=== PATIENT | male | born 1940 | race Caucasian/White ===

== ENCOUNTER 2024-03-20 09:06 | Outpatient (AMB) | payer MEDICARE, OTHER, SELFPAY ==
--- NOTE | 2024-03-20 09:34 | MHC.OFFVIS ---
Intake Visit Reasons: FC- Right tibia/fibula- DOI 02/22/24 Intake Note: Aj is a 84 year old male who presents today with his daughter in law and his for a evaluation of his right tibia/fibula injury, DOI 12/2023. He was placed in a splint on 01/05/24 and then transferred to a cast until they removed it sooner since they thought he didn't have a fracture anymore as per daughter in law. Allergies codeine Allergy (Unknown, Verified 03/20/24 09:55) Unknown lithium Allergy (Unknown, Verified 03/20/24 09:55) Unknown morphine Allergy (Unknown, Verified 03/20/24 09:55) Unknown Opioids - Morphine Analogues Allergy (Unknown, Verified 03/20/24 09:55) Unknown Penicillins Allergy (Unknown, Verified 03/20/24 09:55) Unknown HPI HPI FC- Right tibia/fibula- DOI 02/22/24: Details: 84-year-old male who presents in the office today, as a new patient, for an evaluation of right tibia-fibula fracture. The patient was referred by Evelyn RAMOS at [facility]. X-rays of the right tib-fib were obtained. While in the office today, the patient had a right tibia/fibula injury that occurred in 12/2023. The patient?s jilwmahv-vd-grn reports that the patient got evaluated and was placed in a splint on 01/05/24. He was transferred to a cast, which was removed earlier thinking that the fracture had resolved. The patient is accompanied by his tgsayjfv-so-cdr and his . Review of Systems Const All systems reviewed & are unremarkable except as noted in HPI and below Physical Exam Const General: cooperative and no acute distress Orientation/consciousness: patient oriented x3 Resp Effort & Inspection: normal respiratory effort and able to speak in complete sentences Cardio Peripheral pulses: Peripheral pulses 2+ throughout Skin General skin exam: no rashes or lesions noted Neuro General: patient oriented x3 Extrem Other: Right lower extremity: Able to perform right knee flexion and extension. The patient was unable to follow directions and therefore the exam was done passively from 20 degrees to 90 degrees. Tib/fib squeeze with no alert to pain or discomfort. Able to perform dorsiflexion and plantar flexion. Pedal pulse intact. Of note, he does have two small abrasions, one on the dorsal aspect of the little toe at the dip and the other on the plantar aspect of the little toe at the MCP. No surrounding erythema or drainage. No signs of infection. Office Procedures AMB Fracture Care Fracture Billing Code: Fracture Billing Code Assessment & Plan Assessment & Plan (1) Fracture of right tibia and fibula: Code(s): S82.201A - Unspecified fracture of shaft of right tibia, initial encounter for closed fracture; S82.401A - Unspecified fracture of shaft of right fibula, initial encounter for closed fracture Category: Medical Plan Mr. Robledo is an 84-year-old male who presents in the office today, as a new patient, for an evaluation of right tibia-fibula fracture. The patient was referred by Evelyn RAMOS at [facility]. X-rays of the right tib-fib were obtained. While in the office today, the patient had a right tibia/fibula injury that occurred in 12/2023. The patient?s jbzwvavj-ve-oyf reports that the patient got evaluated and was placed in a splint on 01/05/24. He was transferred to a cast, which was removed earlier thinking that the fracture had resolved. The patient is accompanied by his zejtgqvw-xm-ylp and his . The case was reviewed by . Milan was available to speak with me but unable to see the patient, and a collaborative treatment plan was made. The patient was placed into a tall walking boot, off the shelf. He should remain in the boot at all times while ambulating and to remove the boot daily to perform skin checks and monitor for any skin breakdown. He may start bearing weight as tolerated with the use of a walker. I recommend physical therapy to work on gait, training with a walker. Follow-up will be in 4 weeks with repeat x-rays, or sooner if needed. X-rays of the right ankle, which were obtained while in the office today and were reviewed by me, Tana Mcmahon PA-C, revealed: Demonstration of right tib/fib fracture with interval healing. X-rays of the right tib-fib, obtained on 02/22/24, revealed: Stable fractures of the distal tibia and fibula. Orders: Orders XR ankle RT min 3V 03/20/24 M25.579 - Pain in unspecified ankle and joints of unspecified foot Patient Instructions: Scribed by Sally Valdez, medical technician assistant, for Tana Lisandro [place] on 03/20/24 at 10:59 am EST. Coding Level of Care Code New Pt Level 4 (53806) Diagnoses Fracture of right tibia and fibula S82.201A; S82.401A CPT Codes Fracture Care - Fracture Billing Code: Fracture Billing Code ([id number])
== END 2024-03-20 10:55 | disposition home or self-care (01) ==
PROVIDERS: Visit Provider Physician Assistant
DX: S82.201A Unspecified fracture of shaft of right tibia, initial encounter for closed fracture (principal); S82.401A Unspecified fracture of shaft of right fibula, initial encounter for closed fracture
CPT/HCPCS: 99203

== ENCOUNTER 2024-03-20 15:27 | Outpatient (REF) | payer MEDICARE, OTHER, SELFPAY ==
--- NOTE | ~2024-03-20 | XR_ITS ---
EXAMINATION: XR ANKLE RIGHT CLINICAL INFORMATION: Pain in unspecified ankle and joints of unspecified foot M25.579. COMPARISON: None TECHNIQUE: AP, lateral, and mortise views of the right ankle. FINDINGS: Mildly displaced oblique fracture of the distal tibia and fibula. Ankle mortise is preserved. Talar dome is intact. Small posterior and inferior calcaneal spurs. There are vascular calcifications. XR/XR ankle RT min 3V IMPRESSION: Mildly displaced oblique fractures of the distal tibia and fibula just proximal to the ankle joint.. (Referring physician staff is being called, by physician staff assistance, to be alerted of the above critical findings and recommendations.) Via [employer] communication system 03/29/2024 8:25 PM NAPHTHALENE OPERATOR HELPER Electronically signed by: Ibrahima Morris MD 03/29/2024 09:26 PM JIM HAMPTON
== END 2024-03-20 15:28 | disposition home or self-care (01) ==
LOC: HO.HOSX 15:27
PROVIDERS: Visit Provider Physician Assistant
DX: M25.571 Pain in right ankle and joints of right foot (principal); S82.201A Unspecified fracture of shaft of right tibia, initial encounter for closed fracture; S82.401A Unspecified fracture of shaft of right fibula, initial encounter for closed fracture
CPT/HCPCS: 73610; 99202

== ENCOUNTER 2024-05-02 07:46 | Outpatient (REF) | payer MEDICARE, OTHER, SELFPAY ==
--- NOTE | ~2024-05-02 | XR_ITS ---
CLINICAL HISTORY: M25.579 - Pain in unspecified ankle and joints of unspecified foot 3 view right ankle Comparison: DX/DC/SR - XR ANKLE RT MIN 3V - 03/20/24 09:15 EST Findings: Oblique fractures of the distal tibia and fibula with mild interval callus formation in the tibia when compared to prior. Stable alignment No new fractures. No ankle effusion. Surgical clips in the posterior medial calf. IMPRESSION: 1. Healing oblique fractures of the distal right tibia and fibula with mild tibial callus formation, unchanged alignment. This document has been electronically signed by: Tia Crowley MD on 05/03/2024 01:21:25
--- OUTSIDE RECORDS SUMMARY | 2024-05-02 07:48 | XMS_ITS | Encounter Summary ---
Author Organization [facility] Address [address] [place] [address] Care Team Providers Care Hand Cigar Making Supervisor Name Role Phone Argelia Worthington MD Primary Care Provider [phone] Encounter Details Date Type Department Care Team (Late st Contact Info) Description 04/03/2024 Lab Requisition [facility] - Main Lab [address] [place] [address] Alvaro Baez MD [address] [place] [id number] Chronic kidney disease, unspecified; Cerebral infarction, unspecified (CMS/HCC) Social History Tobacco Use Types Packs/Day Years Used Date Smoking Tobacco: Never Alcohol Use Standard Drinks/Week Comments Never 0 (1 standard drink = 0.6 oz pur e alcohol) Sex and Gender Information Value Date Recorded Sex Assigned at Not on file Gender Identity Not on file Sexual Orientation Not on file documented as of this encounter Plan of Treatment Not on file documented as of this encounter Procedures Procedure Name Priority Date/Time Associated Diagnosis Comments COMPLETE BLOOD COUNT Routine 04/03/2024 8:12 AM EST Chronic kidney disease, unspecified Cerebral infarction, unspecified (CMS/HCC) BASIC METABOLIC PANEL Routine 04/03/2024 8:12 AM EST Chronic kidney disease, unspecified Cerebral infarction, unspecified (CMS/HCC) documented in this encounter Results * (ABNORMAL) Basic metabolic panel (04/03/2024 8:12 AM EST) Sodium 138 133 - 145 mmol/L LAB CHEMISTRY METHOD 04/03/2024 11:58 AM EST [facility] Potassium 4.4 3.5 - 5.5 mmol/L LAB CHEMISTRY METHOD 04/03/2024 11:58 AM [facility] Chloride 107 96 - 110 mmol/L LAB CHEMISTRY METHOD 04/03/2024 11:58 AM [facility] CO2 25 21 - 32 mmol/L LAB CHEMISTRY METHOD 04/03/2024 11:58 AM [facility] Anion Gap 6 3 - 11 LAB CHEMISTRY METHOD 04/03/2024 11:58 AM [facility] Glucose 89 70 - 100 mg/dL LAB CHEMISTRY METHOD 04/03/2024 11:58 AM [facility] BUN 30(H) 5 - 25 mg/dL LAB CHEMISTRY METHOD 04/03/2024 11:58 AM [facility] Creatinine 1.19 0.70 - 1.30 mg/dL LAB CHEMISTRY METHOD 04/03/2024 11:58 AM [facility] eGFR 60 >=60 mL/min/1. 73m2 LAB CHEMISTRY METHOD 04/03/2024 11:58 AM [facility] Comment:Calculation based on the??Chronic Kidney Disease Epidemiology Collaboration (CKD-EPI) equation refit??without adjustment for race. BUN/Creatinine Ratio 25.2 LAB CHEMISTRY METHOD 04/03/2024 11:58 AM [facility] Calcium 8.5 8.5 - 10.5 mg/dL LAB CHEMISTRY METHOD 04/03/2024 11:58 AM [facility] Blood Venous blood specimen / Unknown Venipuncture / Unknown 04/03/2024 8:12 AM EST 04/03/2024 10:36 AM EST Alvaro Baez MD LAB BLOOD ORDERABLES [facility] [address] [place] [address], * (ABNORMAL) Complete blood count (04/03/2024 8:12 AM EST) WBC 7.2 4.8 - 10.8 K/mcL LAB HEMETOLOGY METHOD 04/03/2024 11:23 AM [facility] RBC 3.20(L) 4.50 - 5.50 M/mcL LAB HEMETOLOGY METHOD 04/03/2024 11:23 AM [facility] Hemoglobin 10.4(L) 13.5 - 17.5 g/dL LAB HEMETOLOGY METHOD 04/03/2024 11:23 AM [facility] Hematocrit 32.3(L) 42.0 - 54.0 % LAB HEMETOLOGY METHOD 04/03/2024 11:23 AM [facility] MCV 101.6(H) 79.0 - 98.0 FL LAB HEMETOLOGY METHOD 04/03/2024 11:23 AM [facility] MCH 32.7(H) 27.0 - 32.0 pcg LAB HEMETOLOGY METHOD 04/03/2024 11:23 AM [facility] MCHC 32.2 32.0 - 37.0 g/dL LAB HEMETOLOGY METHOD 04/03/2024 11:23 AM [facility] RDW 12.3 11.0 - 15.0 % LAB HEMETOLOGY METHOD 04/03/2024 11:23 AM [facility] Platelets 197 130 - 400 K/[facility] LAB HEMETOLOGY METHOD 04/03/2024 11:23 AM [facility] MPV 9.4 7.0 - 11.0 FL LAB HEMETOLOGY METHOD 04/03/2024 11:23 AM [facility] NRBC 0.0 <1.0 % LAB HEMETOLOGY METHOD 04/03/2024 11:23 AM [facility] NRBC Absolute 0.00 <0.10 K/mcL LAB HEMETOLOGY METHOD 04/03/2024 11:23 AM [facility] Blood Venous blood specimen / Unknown Venipuncture / Unknown 04/03/2024 8:12 AM EST 04/03/2024 10:36 AM EST Alvaro Baez MD LAB BLOOD ORDERABLES [facility] [address] [place] [address], documented in this encounter Visit Diagnoses Diagnosis Chronic kidney disease, unspecified Cerebral infarction, unspecified (CMS/HCC) documented in this encounter Care Teams Hand Cigar Making Supervisor Relationship Specialty Start Date End Date Argelia Worthington MD [address] [place], [place] [address]RICHARD guaman PCP - General 12/29/11 documented as of this encounter
--- OUTSIDE RECORDS SUMMARY | 2024-05-02 07:48 | XMS_ITS | Encounter Summary ---
Author Organization [facility] Address [address] [place] [address] Phone Care Team Providers Care Bottle Selector Name Role Phone Truman Bess MD Primary Care Provide r Encounter Details Date Type Department Care Team (Late st Contact Info) Description 04/07/2022 Documentation Only [facility] [place], [address] [place] [address] Danyell Hurd [address] [place] [phone] Social History Tobacco Use Types Packs/Day Years Used Date Smoking Tobacco: Former Cigars Smokeless Tobacco: Former Quit: 03/29/2014 Sex and Gender Information Value Date Recorded Sex Assigned at Not on file Legal Sex Male 4:35 PM EST Gender Identity Not on file Sexual Orientation Not on file documented as of this encounter Plan of Treatment Not on file documented as of this encounter Visit Diagnoses Not on filedocumented in this encounter Care Teams Bottle Selector Relationship Specialty Start Date End Date Truman Bess MD [address] [place] [address] PCP - General Internal Medicine 04/07/22 documented as of this encounter
--- OUTSIDE RECORDS SUMMARY | 2024-05-02 07:48 | XMS_ITS | Encounter Summary ---
Author Organization [facility] Address [address] [place] [address] Phone Care Team Providers Care Transcription Specialist Name Role Phone Truman Bess MD Primary Care Provide r Encounter Details Date Type Department Care Team (Late st Contact Info) Description 04/10/2022 Documentation Only [facility] [place], [address] [place] [address] Danyell Hurd [address] [place] [phone] Social History Tobacco Use Types Packs/Day Years [...] on filedocumented in this encounter Care Teams Transcription Specialist Relationship Specialty Start Date End Date Truman Bess MD [address] [place] [phone] PCP - General Internal Medicine 04/07/22 documented as of this encounter
--- OUTSIDE RECORDS SUMMARY | 2024-05-02 07:48 | XMS_ITS | Encounter Summary ---
Author Organization [facility] Address [address] [place] [address] Phone Care Team Providers Care High Tension Tester Name Role Phone Truman Bess MD Primary Care Provide r Reason for Visit * Reason Onset Date Comments Med Refill 04/03/2024 Encounter Details Date Type Department Care Team (Late st Contact Info) Description 04/03/2024 Refill [facility] [place], [address] [place] [address] [place] [address] [place] [phone] Social History Tobacco Use Types Packs/Day Years [...] on filedocumented in this encounter Care Teams High Tension Tester Relationship Specialty Start Date End Date Truman Bess MD [address] [place] [address] PCP - General Internal Medicine 04/07/22 documented as of this encounter
--- OUTSIDE RECORDS SUMMARY | 2024-05-02 07:48 | XMS_ITS | Encounter Summary ---
Author Organization [facility] Address [address] [place] [address] Phone Care Team Providers Care Medical Laboratory Manager Name Role Phone Truman Bess MD Primary Care Provide r Encounter Details Date Type Department Care Team (Late st Contact Info) Description 10/08/2022 Documentation Only [facility] [place], [address] [place] [address] Danyell Hurd [address] [place] [phone] Social History Tobacco Use Types Packs/Day Years [...] on filedocumented in this encounter Care Teams Medical Laboratory Manager Relationship Specialty Start Date End Date Truman Bess MD [address] [place] [address] PCP - General Internal Medicine 04/07/22 documented as of this encounter
--- OUTSIDE RECORDS SUMMARY | 2024-05-02 07:48 | XMS_ITS | Encounter Summary ---
Author Organization [facility] Address [address] [place] [address] Phone Care Team Providers Care Animal Trapper Name Role Phone Truman Bess MD Primary Care Provide r Encounter Details Date Type Department Care Team (Late st Contact Info) Description 11/13/2021 Documentation Only [facility] [place], [address] [place] [address] Danyell Hurd [address] [place] [phone] Social History Tobacco Use Types Packs/Day Years [...] on filedocumented in this encounter Care Teams Animal Trapper Relationship Specialty Start Date End Date Truman Bess MD [address] [place] [address] PCP - General Internal Medicine 04/07/22 documented as of this encounter
--- OUTSIDE RECORDS SUMMARY | 2024-05-02 07:48 | XMS_ITS | Encounter Summary ---
Author Organization [facility], Address [address] [place] [address] Phone Care Team Providers Care Shuttle Filler Name Role Phone Truman Bess MD Primary Care Provide r Reason for Visit * Reason Comments Med Refill Encounter Details Date Type Department Care Team ([facility] st Contact Info) Description 12/04/2020 Refill [facility] [place] [address] [place] [address] Rafael Randolph MD [address] [place] [address] [place] [address] Social History Tobacco Use Types Packs/Day Years Used Date Smoking Tobacco: Former Cigarettes Q uit: 03/29/2012 Smokeless Tobacco: Former Quit: 03/29/2014 Sex and Gender Information Value Date Recorded Sex Assigned at Not on file Legal Sex Male 4:35 PM EST Gender Identity Not on file Sexual Orientation Not on file documented as of this encounter Plan of Treatment Not on file documented as of this encounter Visit Diagnoses Not on filedocumented in this encounter Care Teams Shuttle Filler Relationship Specialty Start Date End Date Truman Bess MD [address] [place], [place] [phone] PCP - General Internal Medicine 04/07/22 documented as of this encounter
--- OUTSIDE RECORDS SUMMARY | 2024-05-02 07:48 | XMS_ITS | Encounter Summary ---
Author Organization [facility] [place], Address [address] [place] [address] Phone Care Team Providers Care Seasoning Mixer Name Role Phone Truman eBss MD Primary Care Provide r Reason for Visit * Reason Comments Med Refill Encounter Details Date Type Department Care Team (Late st Contact Info) Description 03/14/2020 Refill [facility] [address] [place] [address] Rafael Randolph MD [address] [place] [address] [place] [address] Social History Tobacco Use Types Packs/Day Years Used Date Smoking Tobacco: Former Cigarettes Q uit: 03/29/2012 Sex and Gender Information Value Date Recorded Sex Assigned at Not on file Legal Sex Male 4:35 PM EST Gender Identity Not on file Sexual Orientation Not on file documented as of this encounter Plan of Treatment Not on file documented as of this encounter Visit Diagnoses Not on filedocumented in this encounter Care Teams Seasoning Mixer Relationship Specialty Start Date End Date Truman Bess MD [address] [place] [phone] PCP - General Internal Medicine 04/07/22 documented as of this encounter
--- OUTSIDE RECORDS SUMMARY | 2024-05-02 07:48 | XMS_ITS | Encounter Summary ---
Author Organization [facility] [place], Address [address] [place] [address] Phone Care Team Providers Care Shuttle Veneering Supervisor Name Role Phone Truman Bess MD Primary Care Provide r Encounter Details Date Type Department Care Team (Late st Contact Info) Description 05/05/2023 Documentation Only [facility] [place], [address] [place] [address] [place] [phone] Social History Tobacco Use Types Packs/Day Years [...] filedocumented in this encounter Care Teams Shuttle Veneering Supervisor Relationship Specialty Start Date End Date Truman Bess MD [address] [place] [address] PCP - General Internal Medicine 04/07/22 documented as of this encounter
--- OUTSIDE RECORDS SUMMARY | 2024-05-02 07:48 | XMS_ITS | Clinical Summary ---
Author Organization [facility] [place], Address [address] [place] [address] [place] [address] Phone Care Team Providers Care License Examiner Name Role Phone Truman Bess MD Primary Care Provide r Allergies Active Allergy Reactions Criticality Noted Date Comments Codeine Other (see comments) 03/15/2019 [employer] Other (see comments) 03/15/2019 Morphine Other (see comments) 03/15/2019 Other Other (see comments) 04/10/2019 Penicillins Rash Low 03/15/2019 Medications buPROPion XL (WELLBUTRIN XL) 300 MG 24 hr tablet Take 300 mg by mouth 1 (one) time each day Active ferrous sulfate 325 (65 Fe) MG EC tablet Take 325 mg by mouth 1 (one) time each day Do not crush, chew, or split. Active traZODone (DESYREL) 50 MG tablet Take 50 mg by mouth in the morning and 50 mg in the evening. Active melatonin 3 MG tablet Take 3 mg by mouth at bed time Active fludrocortisone 0.1 MG tablet Take 2 tablets (0.2 mg total) by mouth in the morning and 2 tablets (0.2 mg total) in the evening. 120 tablet 5 2 Active hydrocortisone (Cortef) 10 MG tablet Take 1 tablet (10 mg total) by mouth in the morning and 1 tablet (10 mg total) at noon and 1 tablet (10 mg total) in the evening. 90 tablet 5 2 Active midodrine (PROAMATINE) 5 MG tablet Take 3 tablets (15 mg total) by mouth in the morning and 3 tablets (15 mg total) in the evening and 3 tablets (15 mg total) before bedtime. 810 tablet 3 4 05/17/19 25 Active losartan (Cozaar) 25 MG tablet Take 1 tablet (25 mg total) by mouth 1 (one) time each day 90 tablet 2 4 08/15/19 25 Active folic acid (FOLVITE) 1 MG tablet Take 1 tablet (1,000 mcg total) by mouth 1 (one) time each day 90 tablet 3 4 Active tamsulosin (FLOMAX) 0.4 MG 24 hr capsule Take 1 capsule (0.4 mg total) by mouth at bed time 90 capsule 3 4 Active Droxidopa 200 MG capsule Take 1 capsule by mouth in the morning and 1 capsule at noon and 1 capsule in the evening. 270 capsule 3 5 04/03/19 26 Active Droxidopa 200 MG capsule Take 1 capsule by mouth in the morning and 1 capsule at noon and 1 capsule in the evening. 270 capsule 3 4 04/03/19 25 Discontinu ed(Reorder (does not appear on AVS)) Active Problems Problem Noted Date Diagnosed Date Benign prostatic hyperplasia 09/19/2021 Serum creatinine above reference range 2 Recurrent falls 09/19/2021 Orthostatic hypotension 09/19/2021 Iron deficiency anemia 09/19/2021 Hypertension 09/19/2021 Hyperlipidemia 09/19/2021 Stage 3a chronic kidney disease 09/19/2021 Encounters Date Type Department Care Team Description 04/13/2024 Documentation Only [facility] [address] [place] [address] Sameer Puckett MD 04/13/2024 Documentation Only [facility] [address] [place] [address] Tariq Ta MD 04/03/2024 Refill [facility] [address] [place] [address] Christie Goldberg MA from Last 3 Months Immunizations Name Administration Dates Next Due Influenza, Unspecified 01/12/2021,03/31/2019 Moderna SARS-COV-2 06/16/2021 Pfizer SARS-COV-2 07/21/2020,06/29/2020 Pneumococcal Conjugate 13-Valent 12/08/2018 Tdap 08/13/2021 Family History Medical History Relation Comments Cancer Father Heart attack Father Breast cancer Mother Relation Status Comments Child Father Mother Sibling Social History Tobacco Use Types Packs/Day Years Used Date Smoking Tobacco: Former Cigars Smokeless Tobacco: Former Quit: 03/29/2014 Sex and Gender Information Value Date Recorded Sex Assigned at Not on file Legal Sex Male 4:35 PM EST Gender Identity Not on file Sexual Orientation Not on file Last Filed Vital Signs Vital Sign Reading Time Taken Comments Blood Pressure 125/75 11/18/2021 3:49 PM EDT Pulse 99 11/18/2021 3:49 PM EDT Temperature 35.7 ??C (96.3 ??F) 11/18/2021 3:49 PM ED T Respiratory Rate - - Oxygen Saturation 95% 11/18/2021 3:49 PM EDT Inhaled Oxygen Concentration - - Weight 72.6 kg (160 lb) 11/18/2021 3:49 PM EDT Height 170.2 cm (5' 7 ) 11/18/2021 3:49 PM EDT Body Mass Index 25.06 11/18/2021 3:49 PM EDT Plan of Treatment Health Maintenance Due Date Last Done Comments Pneumococcal Vaccine: 65+ Years (2 of 2 - PPSV23 or PCV20) 02/02/2019 12/08/2018 Influenza Vaccine (#1) 2023 , 03/31/2019 Hepatitis B Vaccine Aged Out No longe r eligible based on patient's age to complete this topic Insurance [facility] Care Teams License Examiner Relationship Specialty Start Date End Date Truman Bess MD [address] [place] [phone] PCP - General Internal Medicine 04/07/22
--- OUTSIDE RECORDS SUMMARY | 2024-05-02 07:48 | XMS_ITS | Encounter Summary ---
Author Organization [facility], Address [address] [place] [address] Phone Care Team Providers Care Orthopedic Mechanic Name Role Phone Truman Bess MD Primary Care Provide r Encounter Details Date Type Department Care Team (Late st Contact Info) Description 01/09/2022 Documentation Only [facility], [address] [place] [address] Danyell Hurd [address] [place] [phone] Social History Tobacco Use Types Packs/Day Years [...] on filedocumented in this encounter Care Teams Orthopedic Mechanic Relationship Specialty Start Date End Date Truman Bess MD [address] [place] [id number] PCP - General Internal Medicine 04/07/22 documented as of this encounter
--- OUTSIDE RECORDS SUMMARY | 2024-05-02 07:48 | XMS_ITS | Encounter Summary ---
Author Organization [facility] Address [address] [place] [address] Phone Care Team Providers Care Sign Language Instructor Name Role Phone Truman Bess MD Primary Care Provide r Encounter Details Date Type Department Care Team (Late st Contact Info) Description 12/25/2022 Documentation Only [facility], [address] [place] [address] Danyell Hurd [address] [place] [phone] Social History Tobacco Use Types Packs/Day Years [...] on filedocumented in this encounter Care Teams Sign Language Instructor Relationship Specialty Start Date End Date Truman Bess MD [address] [place] [phone] PCP - General Internal Medicine 04/07/22 documented as of this encounter
--- OUTSIDE RECORDS SUMMARY | 2024-05-02 07:48 | XMS_ITS | Encounter Summary ---
Author Organization [facility] Address [address] [place] [address] Care Team Providers Care Gravity Prospecting Operator Helper Name Role Phone Argelia Worthington MD Primary Care Provider [phone] Encounter Details Date Type Department Care Team (Late st Contact Info) Description 02/10/2024 Lab Requisition [facility] - Main Lab [address] [place] [address] Alvaro Baez MD [address] [place] [phone] Cerebral infarction, unspecified (CMS/HCC) Social History Tobacco [...] Associated Diagnosis Comments COMPLETE BLOOD COUNT Routine 02/10/2024 7:06 AM EST Cerebral infarction, unspecified (CMS/HCC) BASIC METABOLIC PANEL Routine 02/10/2024 7:06 AM EST Cerebral infarction, unspecified (CMS/HCC) documented in this encounter Results * (ABNORMAL) Basic metabolic panel (02/10/2024 7:06 AM EST) Sodium 136 133 - 145 mmol/L LAB CHEMISTRY METHOD 02/10/2024 1:44 PM EST [facility] Potassium 4.7 3.5 - 5.5 mmol/L LAB CHEMISTRY METHOD 02/10/2024 1:44 PM EST [facility] LAB Comment:Hemolysis present Chloride 104 96 - 110 mmol/L LAB CHEMISTRY METHOD 02/10/2024 1:44 PM [facility] CO2 25 21 - 32 mmol/L LAB CHEMISTRY METHOD 02/10/2024 1:44 PM [facility] Anion Gap 7 3 - 11 LAB CHEMISTRY METHOD 02/10/2024 1:44 PM [facility] Glucose 77 70 - 100 mg/dL LAB CHEMISTRY METHOD 02/10/2024 1:44 PM [facility] BUN 30(H) 5 - 25 mg/dL LAB CHEMISTRY METHOD 02/10/2024 1:44 PM [facility] Creatinine 1.24 0.70 - 1.30 mg/dL LAB CHEMISTRY METHOD 02/10/2024 1:44 PM [facility] eGFR 57(L) >=60 mL/min/1. 73m2 LAB CHEMISTRY METHOD 02/10/2024 1:44 PM [facility] Comment:Calculation based on the??Chronic Kidney Disease Epidemiology Collaboration (CKD-EPI) equation refit??without adjustment for race. BUN/Creatinine Ratio 24.2 LAB CHEMISTRY METHOD 02/10/2024 1:44 PM [facility] Calcium 9.2 8.5 - 10.5 mg/dL LAB CHEMISTRY METHOD 02/10/2024 1:44 PM [facility] Blood Venous blood specimen / Unknown Venipuncture / Unknown 02/10/2024 7:06 AM EST 02/10/2024 12:05 PM EST Alvaro Baez MD LAB BLOOD ORDERABLES [facility] LAB [address] [place] [address], * (ABNORMAL) Complete blood count (02/10/2024 7:06 AM EST) WBC 10.2 4.8 - 10.8 K/mcL LAB HEMETOLOGY METHOD 02/10/2024 1:14 PM [facility] RBC 3.10(L) 4.50 - 5.50 M/mcL LAB HEMETOLOGY METHOD 02/10/2024 1:14 PM [facility] Hemoglobin 10.2(L) 13.5 - 17.5 g/dL LAB HEMETOLOGY METHOD 02/10/2024 1:14 PM [facility] Hematocrit 32.0(L) 42.0 - 54.0 % LAB HEMETOLOGY METHOD 02/10/2024 1:14 PM [facility] MCV 101.9(H) 79.0 - 98.0 FL LAB HEMETOLOGY METHOD 02/10/2024 1:14 PM [facility] MCH 32.5(H) 27.0 - 32.0 pcg LAB HEMETOLOGY METHOD 02/10/2024 1:14 PM [facility] MCHC 31.9(L) 32.0 - 37.0 g/dL LAB HEMETOLOGY METHOD 02/10/2024 1:14 PM [facility] RDW 12.7 11.0 - 15.0 % LAB HEMETOLOGY METHOD 02/10/2024 1:14 PM [facility] Platelets 247 130 - 400 K/mcL LAB HEMETOLOGY METHOD 02/10/2024 1:14 PM [facility] MPV 9.4 7.0 - 11.0 FL LAB HEMETOLOGY METHOD 02/10/2024 1:14 PM [facility] NRBC 0.0 <1.0 % LAB HEMETOLOGY METHOD 02/10/2024 1:14 PM [facility] NRBC Absolute 0.00 <0.10 K/mcL LAB HEMETOLOGY METHOD 02/10/2024 1:14 PM [facility] Blood Venous blood specimen / Unknown Venipuncture / Unknown 02/10/2024 7:06 AM EST 02/10/2024 12:05 PM EST Alvaro Baez MD LAB BLOOD ORDERABLES [facility] [address] [place] [address], documented in this encounter Visit Diagnoses Diagnosis Cerebral infarction, unspecified (CMS/HCC) documented in this encounter Care Teams Gravity Prospecting Operator Helper Relationship Specialty Start Date End Date Argelia Worthington MD [address] [place], [place] [address]RICHARD PCP - General 12/29/11 documented as of this encounter
--- OUTSIDE RECORDS SUMMARY | 2024-05-02 07:48 | XMS_ITS | Encounter Summary ---
Author Organization [facility], Address [address] [place] [address] Phone Care Team Providers Care Day Porter Name Role Phone Truman Bess MD Primary Care Provide r Reason for Visit * Reason Comments Med Refill Encounter Details Date Type Department Care Team ([facility] st Contact Info) Description 11/08/2020 Refill [facility] [address] [place] [address] Rafael Randolph MD [address] [place] [address] [place] [address] Social History Tobacco Use Types Packs/Day Years [...] on filedocumented in this encounter Care Teams Day Porter Relationship Specialty Start Date End Date Truman Bess MD [address] [place], [place] [phone] PCP - General Internal Medicine 04/07/22 documented as of this encounter
--- OUTSIDE RECORDS SUMMARY | 2024-05-02 07:48 | XMS_ITS | Encounter Summary ---
Author Organization [facility] Address [address] [place] [address] Care Team Providers Care Lock Setter Name Role Phone Argelia Worthington MD Primary Care Provider [phone] Encounter Details Date Type Department Care Team (Late st Contact Info) Description 04/12/2024 Lab Requisition [facility] - Main Lab [address] [place] [address] Alvaro Baez MD [address] [place] [address] Cerebral infarction, unspecified (CMS/HCC) Social History Tobacco [...] Associated Diagnosis Comments COMPLETE BLOOD COUNT Routine 04/12/2024 6:41 AM EST Cerebral infarction, unspecified (CMS/HCC) BASIC METABOLIC PANEL Routine 04/12/2024 6:41 AM EST Cerebral infarction, unspecified (CMS/HCC) documented in this encounter Results * (ABNORMAL) Basic metabolic panel (04/12/2024 6:41 AM EST) Sodium 139 133 - 145 mmol/L LAB CHEMISTRY METHOD 04/12/2024 10:52 AM EST [facility] Potassium 4.3 3.5 - 5.5 mmol/L LAB CHEMISTRY METHOD 04/12/2024 10:52 AM EST [facility] Chloride 105 96 - 110 mmol/L LAB CHEMISTRY METHOD 04/12/2024 10:52 AM [facility] CO2 28 21 - 32 mmol/L LAB CHEMISTRY METHOD 04/12/2024 10:52 AM [facility] Anion Gap 6 3 - 11 LAB CHEMISTRY METHOD 04/12/2024 10:52 AM [facility] Glucose 91 70 - 100 mg/dL LAB CHEMISTRY METHOD 04/12/2024 10:52 AM [facility] BUN 36(H) 5 - 25 mg/dL LAB CHEMISTRY METHOD 04/12/2024 10:52 AM [facility] Creatinine 1.26 0.70 - 1.30 mg/dL LAB CHEMISTRY METHOD 04/12/2024 10:52 AM [facility] eGFR 56(L) >=60 mL/min/1. 73m2 LAB CHEMISTRY METHOD 04/12/2024 10:52 AM [facility] Comment:Calculation based on the??Chronic Kidney Disease Epidemiology Collaboration (CKD-EPI) equation refit??without adjustment for race. BUN/Creatinine Ratio 28.6 LAB CHEMISTRY METHOD 04/12/2024 10:52 AM [facility] Calcium 8.6 8.5 - 10.5 mg/dL LAB CHEMISTRY METHOD 04/12/2024 10:52 AM [facility] Blood Venous blood specimen / Unknown Venipuncture / Unknown 04/12/2024 6:41 AM EST 04/12/2024 9:49 AM EST Alvaro Baez MD LAB BLOOD ORDERABLES [facility] [address] [place] [address], * (ABNORMAL) Complete blood count (04/12/2024 6:41 AM EST) WBC 10.7 4.8 - 10.8 K/mcL LAB HEMETOLOGY METHOD 04/12/2024 10:33 AM [facility] RBC 3.50(L) 4.50 - 5.50 M/mcL LAB HEMETOLOGY METHOD 04/12/2024 10:33 AM [facility] Hemoglobin 11.1(L) 13.5 - 17.5 g/dL LAB HEMETOLOGY METHOD 04/12/2024 10:33 AM [facility] Hematocrit 37.6(L) 42.0 - 54.0 % LAB HEMETOLOGY METHOD 04/12/2024 10:33 AM [facility] MCV 109.0(H) 79.0 - 98.0 FL LAB HEMETOLOGY METHOD 04/12/2024 10:33 AM [facility] MCH 32.2(H) 27.0 - 32.0 pcg LAB HEMETOLOGY METHOD 04/12/2024 10:33 AM [facility] MCHC 29.5(L) 32.0 - 37.0 g/dL LAB HEMETOLOGY METHOD 04/12/2024 10:33 AM [facility] RDW 12.4 11.0 - 15.0 % LAB HEMETOLOGY METHOD 04/12/2024 10:33 AM [facility] Platelets 197 130 - 400 K/mcL LAB HEMETOLOGY METHOD 04/12/2024 10:33 AM [facility] MPV 9.5 7.0 - 11.0 FL LAB HEMETOLOGY METHOD 04/12/2024 10:33 AM [facility] NRBC 0.0 <1.0 % LAB HEMETOLOGY METHOD 04/12/2024 10:33 AM [facility] NRBC Absolute 0.00 <0.10 K/mcL LAB HEMETOLOGY METHOD 04/12/2024 10:33 AM [facility] Blood Venous blood specimen / Unknown Venipuncture / Unknown 04/12/2024 6:41 AM EST 04/12/2024 9:49 AM EST Alvaro Baez MD LAB BLOOD ORDERABLES [facility] ([facility] [address] [place] [address], documented in this encounter Visit Diagnoses Diagnosis Cerebral infarction, unspecified (CMS/HCC) documented in this encounter Care Teams Lock Setter Relationship Specialty Start Date End Date Argelia Worthington MD [address] [place] [address] [place] PCP - General 12/29/11 documented as of this encounter
--- OUTSIDE RECORDS SUMMARY | 2024-05-02 07:48 | XMS_ITS | Clinical Summary ---
Author Organization [address] Address [address] [place] [address] Phone Care Team Providers Care Mining Speculator Name Role Phone Argelia Worthington MD Primary Care Provider [phone] Encounters Date Type Department Care Team Description 04/12/2024 Lab Requisition [facility] [address] [place] [phone] Alvaro Baez MD Cerebral infarction, unspecified (CMS/HCC) 04/03/2024 Lab Requisition [facility] [address] [place] [phone] Alvaro Baez MD Chronic kidney disease, unspecified; Cerebral infarction, unspecified (CMS/HCC) 02/10/2024 Lab Requisition [facility] [address] [place] [phone] Alvaro Baez MD Cerebral infarction, unspecified (CMS/HCC) from Last 3 Months Surgical History Surgery Date Site/Laterality Comments CORONARY ARTERY BYPASS GRAFT PROCEDURE: HISTORICAL CABG TONSILLECTOMY PROCEDURE: HISTORICAL TONSILLECTOMY BACK SURGERY PROCEDURE: HISTORICAL BACK SURGERY CATARACT EXTRACTION PROCEDURE: HISTORICAL CATARACT REMOVAL OTHER SURGICAL HISTORY PROCEDURE: [place] TOTAL DISC ARTHRP ANT SECOND INTERSPACE LUMBAR Medical History Medical History Date Comments Hyperlipidemia 02/22/2017 DX:Hyperlipidemi a Hypertension 02/22/2017 DX:Hypertension CAD (coronary artery disease) 02/22/2017 DX :CAD (coronary artery disease); COMMENT: S/p CABG Depression 02/22/2017 DX:Depression History of prostate cancer 02/22/2017 DX:Hi story of prostate cancer History of stomach cancer 02/22/2017 DX:His tory of stomach cancer BPH (benign prostatic hyperplasia) DX:BPH (benign prostatic hyperplasia) Bipolar affective disorder, current episode manic (CMS/HCC) DX:Bipolar affective disorde r, current episode manic (HCC) Chronic kidney disease, stage 3 (CMS/HCC) DX:Chronic kidney disease, stage 3 (HCC) Decreased testosterone level DX: Decreased testosterone level Dementia (CMS/HCC) DX:Dementia ( HCC) Fall at home DX:Fall at home Fatigue DX:Fatigue Frequent falls DX:Frequent fall s Hemorrhoids DX:Hemorrhoids History of blood transfusion DX: History of blood transfusion Hypercholesterolemia DX:Hypercho lesterolemia Hypokalemia DX:Hypokalemia Impotence of organic origin DX:I mpotence of organic origin Incontinence of feces DX:Inconti nence of feces Insomnia DX:Insomnia Iron deficiency anemia DX:Iron d eficiency anemia Microscopic hematuria DX:Microsc opic hematuria Mild cognitive disorder DX:Mild cognitive disorder Orthostatic hypotension DX:Ortho static hypotension Obstructive sleep apnea DX:Obstr uctive sleep apnea Renal cyst DX:Renal cyst Rib fractures DX:Rib fractures Scalp laceration DX:Scalp lacera tion Squamous cell carcinoma of skin DX:Squamous cell carcinoma of skin Pain in thumb joint with movement DX:Pain in thumb joint with movement Family History Medical History Relation Name Comments Heart attack Father Other cancer Father Breast cancer Mother Relation Name Status Comments Father Mother Social History Tobacco Use Types Packs/Day Years Used Date Smoking Tobacco: Never Alcohol Use Standard Drinks/Week Comments Never 0 (1 standard drink = 0.6 oz pur e alcohol) Sex and Gender Information Value Date Recorded Sex Assigned at Not on file Gender Identity Not on file Sexual Orientation Not on file Obstetrics History Plan of Treatment Health Maintenance Due Date Last Done Comments Zoster Vaccines (1 of 2) 1989 RSV Immunization Patients 60 + Years Old (1 - 1-dose 75+ series) 2014 Pneumococcal Vaccine: 65+ Years (2 of 2 - PPSV23 or PCV20) 12/09/2019 12/08/2018 Cholesterol Screening (Lipid Panel) 02/28/2022 Depression Screening 02/28/2022 Falls Risk Assessment 02/28/2022 Medicare Annual Wellness Visit 02/28/2022 Social Influencers of Health Screening 02/28/2022 COVID-19 Vaccine (4 - 2023-2 5 season) 2023 06/16/2021, 07/21/2020, 06/29/2020 Influenza Vaccine (#1) 2023 , 03/31/2019 Hypertension/CHF/CAD Annual BMP Blood Test 04/12/2025 04/12/2024, 04/03/2024, 02/10/2024 DTaP,Tdap,and Td Vaccines (2 - Td or Tdap) 08/14/2031 08/13/2021 HIB Vaccines Aged Out No longer eligi ble based on patient's age to complete this topic HPV Vaccines Aged Out No longer eligi ble based on patient's age to complete this topic Hepatitis A Vaccines Aged Out No long er eligible based on patient's age to complete this topic Hepatitis B Vaccines Aged Out No long er eligible based on patient's age to complete this topic IPV Vaccines Aged Out No longer eligi ble based on patient's age to complete this topic MMR Vaccines Aged Out No longer eligi ble based on patient's age to complete this topic Meningococcal ACWY Vaccine Aged Out N o longer eligible based on patient's age to complete this topic RSV Immunization Patients Under 20 months Aged Out No longer eligible b ased on patient's age to complete this topic Varicella Vaccines Aged Out No longer eligible based on patient's age to complete this topic Procedures Procedure Name Priority Date/Time Associated Diagnosis Comments BASIC METABOLIC PANEL Routine 04/12/2024 6:41 AM EST Cerebral infarction, unspecified (CMS/HCC) COMPLETE BLOOD COUNT Routine 04/12/2024 6:41 AM EST Cerebral infarction, unspecified (CMS/HCC) BASIC METABOLIC PANEL Routine 04/03/2024 8:12 AM EST Chronic kidney disease, unspecified Cerebral infarction, unspecified (CMS/HCC) COMPLETE BLOOD COUNT Routine 04/03/2024 8:12 AM EST Chronic kidney disease, unspecified Cerebral infarction, unspecified (CMS/HCC) BASIC METABOLIC PANEL Routine 02/10/2024 7:06 AM EST Cerebral infarction, unspecified (CMS/HCC) COMPLETE BLOOD COUNT Routine 02/10/2024 7:06 AM EST Cerebral infarction, unspecified (CMS/HCC) from Last 3 Months Results * (ABNORMAL) Complete blood count (04/12/2024 6:41 AM EST) Only the most recent of3 resultswithin the time period is included. WBC 10.7 4.8 - 10.8 K/mcL LAB HEMETOLOGY METHOD 04/12/2024 10:33 AM [facility] RBC 3.50(L) 4.50 - 5.50 M/mcL LAB HEMETOLOGY METHOD 04/12/2024 10:33 AM [facility] Hemoglobin 11.1(L) 13.5 - 17.5 g/dL LAB HEMETOLOGY METHOD 04/12/2024 10:33 AM [facility] Hematocrit 37.6(L) 42.0 - 54.0 % LAB HEMETOLOGY METHOD 04/12/2024 10:33 AM [facility] MCV 109.0(H) 79.0 - 98.0 FL LAB HEMETOLOGY METHOD 04/12/2024 10:33 AM [facility] MCH 32.2(H) 27.0 - 32.0 pcg LAB HEMETOLOGY METHOD 04/12/2024 10:33 AM [facility] MCHC 29.5(L) 32.0 - 37.0 g/dL LAB HEMETOLOGY METHOD 04/12/2024 10:33 AM [facility] RDW 12.4 11.0 - 15.0 % LAB HEMETOLOGY METHOD 04/12/2024 10:33 AM [facility] Platelets 197 130 - 400 K/mcL LAB HEMETOLOGY METHOD 04/12/2024 10:33 AM [facility] MPV 9.5 7.0 - 11.0 FL LAB HEMETOLOGY METHOD 04/12/2024 10:33 AM [facility] NRBC 0.0 <1.0 % LAB HEMETOLOGY METHOD 04/12/2024 10:33 AM [facility] NRBC Absolute 0.00 <0.10 K/mcL LAB HEMETOLOGY METHOD 04/12/2024 10:33 AM [facility] Blood Venous blood specimen / Unknown Venipuncture / Unknown 04/12/2024 6:41 AM EST 04/12/2024 9:49 AM EST Alvaro Baez MD LAB BLOOD ORDERABLES [facility] [address] [place] [address], * (ABNORMAL) Basic metabolic panel (04/12/2024 6:41 AM EST) Only the most recent of3 resultswithin the time period is included. Sodium 139 133 - 145 mmol/L LAB CHEMISTRY METHOD 04/12/2024 10:52 AM [facility] Potassium 4.3 3.5 - 5.5 mmol/L LAB CHEMISTRY METHOD 04/12/2024 10:52 AM [facility] Chloride 105 96 - 110 mmol/L LAB CHEMISTRY METHOD 04/12/2024 10:52 AM [facility] CO2 28 21 - 32 mmol/L LAB CHEMISTRY METHOD 04/12/2024 10:52 AM [facility] Anion Gap 6 3 - 11 LAB CHEMISTRY METHOD 04/12/2024 10:52 AM [facility] Glucose 91 70 - 100 mg/dL LAB CHEMISTRY METHOD 04/12/2024 10:52 AM [facility] BUN 36(H) 5 - 25 mg/dL LAB CHEMISTRY METHOD 04/12/2024 10:52 AM [facility] Creatinine 1.26 0.70 - 1.30 mg/dL LAB CHEMISTRY METHOD 04/12/2024 10:52 AM [facility] eGFR 56(L) >=60 mL/min/1. 73m2 LAB CHEMISTRY METHOD 04/12/2024 10:52 AM EST [facility] Comment:Calculation based on the??Chronic Kidney Disease Epidemiology Collaboration (CKD-EPI) equation refit??without adjustment for race. BUN/Creatinine Ratio 28.6 LAB CHEMISTRY METHOD 04/12/2024 10:52 AM EST [facility] Calcium 8.6 8.5 - 10.5 mg/dL LAB CHEMISTRY METHOD 04/12/2024 10:52 AM EST [facility] Blood Venous blood specimen / Unknown Venipuncture / Unknown 04/12/2024 6:41 AM EST 04/12/2024 9:49 AM EST Alvaro Baez MD LAB BLOOD ORDERABLES [facility] [address] [place] [address], from Last 3 Months Care Teams Mining Speculator Relationship Specialty Start Date End Date Argelia Worthington MD [address] [place] [address] PCP - General 12/29/11
--- OUTSIDE RECORDS SUMMARY | 2024-05-02 07:48 | XMS_ITS | Encounter Summary ---
Author Organization [facility], Address [address] [place] [address] Phone Care Team Providers Care Etcher Printed Circuit Boards Name Role Phone Truman Bess MD Primary Care Provide r Encounter Details Date Type Department Care Team (Late st Contact Info) Description 09/19/2021 Documentation Only [facility], [address] [place] [address] Danyell Hurd [address] [place] [phone] Social History Tobacco Use Types Packs/Day Years [...] on filedocumented in this encounter Care Teams Etcher Printed Circuit Boards Relationship Specialty Start Date End Date Truman Bess MD [address] [place] [id number] PCP - General Internal Medicine 04/07/22 documented as of this encounter
--- OUTSIDE RECORDS SUMMARY | 2024-05-02 07:48 | XMS_ITS | Encounter Summary ---
Author Organization [facility], Address [address] [address] Phone Care Team Providers Care Paper Products Machine Operator Name Role Phone Truman Bess MD Primary Care Provide r Encounter Details Date Type Department Care Team (Late st Contact Info) Description 04/13/2024 Documentation Only [facility], [address] [place] [address] Tariq Ta MD [address] [place] [phone] Social History Tobacco Use Types Packs/Day Years [...] on filedocumented in this encounter Care Teams Paper Products Machine Operator Relationship Specialty Start Date End Date Truman Bess MD [address] [place] [address] [id number] PCP - General Internal Medicine 04/07/22 documented as of this encounter
--- OUTSIDE RECORDS SUMMARY | 2024-05-02 07:49 | XMS_ITS | Encounter Summary ---
Author Organization [facility], Address [address] [place] [address] Phone Care Team Providers Care Gluing Machine Offbearer Name Role Phone Truman Bess MD Primary Care Provide r Encounter Details Date Type Department Care Team (Late st Contact Info) Description 04/13/2024 Documentation Only [facility], [address] [place] [address] Sameer Puckett MD [address] [place] [phone] Social History Tobacco Use Types Packs/Day Years [...] on filedocumented in this encounter Care Teams Gluing Machine Offbearer Relationship Specialty Start Date End Date Truman Bess MD [address] [place] [address] [phone] PCP - General Internal Medicine 04/07/22 documented as of this encounter
--- OUTSIDE RECORDS SUMMARY | 2024-05-02 07:49 | XMS_ITS | Encounter Summary ---
Author Organization [facility], Address [address] [place] [address] Phone Care Team Providers Care Delivery Motorcycle Driver Name Role Phone Truman Bess MD Primary Care Provide r Encounter Details Date Type Department Care Team (Late st Contact Info) Description 08/30/2023 Documentation Only [facility], [address] [place] [address] Sameer Puckett MD [address] [facility] [address] [place] [phone] Social History Tobacco Use Types Packs/Day Years [...] on filedocumented in this encounter Care Teams Delivery Motorcycle Driver Relationship Specialty Start Date End Date Truman Bess MD [address] [place] [address] [phone] PCP - General Internal Medicine 04/07/22 documented as of this encounter
--- OUTSIDE RECORDS SUMMARY | 2024-05-02 07:49 | XMS_ITS | Encounter Summary ---
Author Organization [facility], Address [address] [place] [address] Phone Care Team Providers Care Block Press Operator Name Role Phone Truman Bess MD Primary Care Provide r Encounter Details Date Type Department Care Team (Late st Contact Info) Description 12/24/2023 Documentation Only [facility] [place], [address] [place] [address] Sameer Puckett MD [address] [place] [phone] Social History Tobacco Use Types Packs/Day Years [...] on filedocumented in this encounter Care Teams Block Press Operator Relationship Specialty Start Date End Date Truman Bess MD [address] [place] [address] [phone] PCP - General Internal Medicine 04/07/22 documented as of this encounter
== END 2024-05-02 07:47 | disposition home or self-care (01) ==
LOC: HO.HOSX 07:46
PROVIDERS: Visit Provider Physician Assistant
DX: M25.571 Pain in right ankle and joints of right foot (principal); S82.201A Unspecified fracture of shaft of right tibia, initial encounter for closed fracture; S82.401A Unspecified fracture of shaft of right fibula, initial encounter for closed fracture
CPT/HCPCS: 73610; 99212

== ENCOUNTER 2024-05-02 11:13 | Outpatient (AMB) | payer MEDICARE, OTHER, SELFPAY ==
--- NOTE | 2024-05-02 11:36 | A.OFFVIS_ITS ---
Intake Visit Reasons: OV - Right tibia/fibula, DOI 02/22/24 Intake Note: Aj is a 84 year old male who presents today with his daughter in law and his for a follow up of his right tibia/fibula injury, DOI 02/22/24. Patient reports he is having little to no pain. Allergies codeine Allergy (Unknown, Verified 05/02/24 11:41) Unknown lithium Allergy (Unknown, Verified 05/02/24 11:41) Unknown morphine Allergy (Unknown, Verified 05/02/24 11:41) Unknown Opioids - Morphine Analogues Allergy (Unknown, Verified 05/02/24 11:41) Unknown Penicillins Allergy (Unknown, Verified 05/02/24 11:41) Unknown HPI HPI OV - Right tibia/fibula, DOI 02/22/24: Details: Mr. Robledo is an 84-year-old male who presents to the office today for routine follow-up status post right tibia and fibula fracture. Date of injury was 02/22/2024. At his last appointment with me on 03/20/2024 he was placed into a tall walking boot. Patient presents in a walking boot today in the office but is primarily wheelchair-bound. His daughter and accompanied him however the patient is only alert to self and is unable to recognize his family members. [facility] Social History (Updated 05/02/24 @ 11:40 by Eduarda Goldberg) Alcohol intake: never Patient Tobacco Use Status: Never used Tobacco Review of Systems Const All systems reviewed & are unremarkable except as noted in HPI and below Physical Exam Const General: cooperative, healthy appearing and no acute distress Resp Effort & Inspection: normal respiratory effort and able to speak in complete sentences Cardio Rate: regular rate Peripheral pulses: Peripheral pulses 2+ throughout GI Palpation (GI): Soft to palpation Skin General skin exam: no rashes or lesions noted Lesions: no lesions Rashes: no rashes Extrem Other: Right lower extremity: Able to perform right knee flexion and extension. The patient was unable to follow directions and therefore the exam was done passively from 20 degrees to 90 degrees. Tib/fib squeeze with no alert to pain or discomfort. Able to perform dorsiflexion and plantar flexion. Pedal pulse intact. Assessment & Plan Assessment & Plan (1) Fracture of right tibia and fibula: Code(s): S82.201A - Unspecified fracture of shaft of right tibia, initial encounter for closed fracture; S82.401A - Unspecified fracture of shaft of right fibula, initial encounter for closed fracture Category: Medical Plan Mr. Robledo is an 84-year-old male who presents to the office today for routine follow-up status post right tibia and fibula fracture. Date of injury was 02/22/2024. At his last appointment with me on 03/20/2024 he was placed into a tall walking boot. Patient presents in a walking boot today in the office but is primarily wheelchair-bound. His daughter and accompanied him however the patient is only alert to self and is unable to recognize his family members. While the office today I did discuss with his daughter and that the patient should continue with physical therapy for glute core and quad strengthening. He may progress to weight-bearing as tolerated with a walker and discontinue the boot at this time. The patient will additionally need assistance with transfers. I additionally requested that the patient be accompanied to all visits by a staff member as the patient is only alert to himself and is at a high fall risk. There is no additional orthopedic intervention that is needed at this time and therefore the patient will follow up p.r.n., sooner if needed. X-rays of the right tib-fib which were obtained while in the office today and were reviewed by me, Tana Mcmahon PA-C, revealed routine healing right tibia and fibular fracture. Orders: Orders XR ankle RT min 3V Today M25.579 - Pain in unspecified ankle and joints of unspecified foot Coding Level of Care Code Est Pt Level 3 (28435) Diagnoses Fracture of right tibia and fibula S82.201A; S82.401A
--- OUTSIDE RECORDS SUMMARY | 2024-05-02 12:05 | XMS_ITS | Encounter Summary ---
Author Organization [facility], Address [address] [place] [address] Phone Care Team Providers Care Unhairer Name Role Phone Truman Bess MD Primary Care Provide r Reason for Visit * Reason Comments Med Refill Encounter Details Date Type Department Care Team ([facility] st Contact Info) Description 11/08/2020 Refill [facility] [address] [place] [address] Rafael Randolph MD [address] [place] [address] [place] [address] Social History Tobacco Use Types Packs/Day Years [...] on filedocumented in this encounter Care Teams Unhairer Relationship Specialty Start Date End Date Truman Bess MD [address] [place], [place] [phone] PCP - General Internal Medicine 04/07/22 documented as of this encounter
--- OUTSIDE RECORDS SUMMARY | 2024-05-02 12:05 | XMS_ITS | Encounter Summary ---
Author Organization [facility] Address [address] [place] [address] Care Team Providers Care Printing Press Machinist Name Role Phone Argelia Worthington MD Primary Care Provider [phone] Encounter Details Date Type Department Care Team (Late st Contact Info) Description 02/10/[address] [facility] - Main Lab [address] [place] [address] Alvaro Baez MD [address] [place] [id number] Cerebral infarction, unspecified (CMS/HCC) Social History Tobacco [...] LAB CHEMISTRY METHOD 02/10/2024 1:44 PM EST [facility] Potassium 4.7 3.5 - 5.5 mmol/L LAB CHEMISTRY METHOD 02/10/2024 1:44 PM EST [facility] Comment:Hemolysis present Chloride 104 96 - 110 mmol/L LAB CHEMISTRY METHOD 02/10/2024 1:44 PM [facility] CO2 25 21 - 32 mmol/L LAB CHEMISTRY METHOD 02/10/2024 1:44 PM [facility] Anion Gap 7 3 - 11 LAB CHEMISTRY METHOD 02/10/2024 1:44 PM [facility] Glucose 77 70 - 100 mg/dL LAB CHEMISTRY METHOD 02/10/2024 1:44 PM [facility] BUN 30(H) 5 - 25 mg/dL LAB CHEMISTRY METHOD 02/10/2024 1:44 PM [facility] Creatinine 1.24 0.70 - 1.30 mg/dL LAB CHEMISTRY METHOD 02/10/2024 1:44 PM [facility] eGFR 57(L) >=60 mL/min/1. 73m2 LAB CHEMISTRY METHOD 02/10/2024 1:44 PM [facility] Comment:Calculation based on the??Chronic Kidney Disease Epidemiology Collaboration (CKD-EPI) equation refit??without adjustment for race. BUN/Creatinine Ratio 24.2 LAB CHEMISTRY METHOD 02/10/2024 1:44 PM [facility] Calcium 9.2 8.5 - 10.5 mg/dL LAB CHEMISTRY METHOD 02/10/2024 1:44 PM [facility] Blood Venous blood specimen / Unknown Venipuncture / Unknown 02/10/2024 7:06 AM EST 02/10/2024 12:05 PM EST Alvaro Baez MD LAB BLOOD ORDERABLES [facility] [address] [place] [address], * (ABNORMAL) Complete blood count (02/10/2024 7:06 AM EST) WBC 10.2 4.8 - 10.8 K/mcL LAB HEMETOLOGY METHOD 02/10/2024 1:14 PM [facility] RBC 3.10(L) 4.50 - 5.50 M/mcL LAB HEMETOLOGY METHOD 02/10/2024 1:14 PM [facility] Hemoglobin 10.2(L) 13.5 - 17.5 g/dL LAB HEMETOLOGY METHOD 02/10/2024 1:14 PM [facility] Hematocrit 32.0(L) 42.0 - 54.0 % LAB HEMETOLOGY METHOD 02/10/2024 1:14 PM [facility] MCV 101.9(H) 79.0 - 98.0 FL LAB HEMETOLOGY METHOD 02/10/2024 1:14 PM [facility] MCH 32.5(H) 27.0 - 32.0 pcg LAB HEMETOLOGY METHOD 02/10/2024 1:14 PM [facility] MCHC 31.9(L) 32.0 - 37.0 g/dL LAB HEMETOLOGY METHOD 02/10/2024 1:14 PM [facility] RDW 12.7 11.0 - 15.0 % LAB HEMETOLOGY METHOD 02/10/2024 1:14 PM [facility] Platelets 247 130 - 400 K/mcL LAB HEMETOLOGY METHOD 02/10/2024 1:14 PM [facility] MPV 9.4 7.0 - 11.0 FL LAB HEMETOLOGY METHOD 02/10/2024 1:14 PM [facility] NRBC 0.0 <1.0 % LAB HEMETOLOGY METHOD 02/10/2024 1:14 PM [facility] NRBC Absolute 0.00 <0.10 K/mcL LAB HEMETOLOGY METHOD 02/10/2024 1:14 PM [facility] Blood Venous blood specimen / Unknown Venipuncture / Unknown 02/10/2024 7:06 AM EST 02/10/2024 12:05 PM EST Alvaro Baez MD LAB BLOOD ORDERABLES [facility] [address] [place] [address], documented in this encounter Visit Diagnoses Diagnosis Cerebral infarction, unspecified (CMS/HCC) documented in this encounter Care Teams Printing Press Machinist Relationship Specialty Start Date End Date Argelia Worthington MD [address] [place], [place] [address]RICHARD PCP - General 12/29/11 documented as of this encounter
--- OUTSIDE RECORDS SUMMARY | 2024-05-02 12:05 | XMS_ITS | Encounter Summary ---
Author Organization [facility], Address [address] [place] [address] Phone Care Team Providers Care Fruit Harvester Name Role Phone Truman Bess MD Primary Care Provide r Reason for Visit * Reason Comments Med Refill Encounter Details Date Type Department Care Team ([facility] st Contact Info) Description 12/04/2020 Refill [facility] - [facility] [address] [place] [address] Rafael Randolph MD [address] [place] [address] [place] [address] Social History Tobacco Use Types Packs/Day Years [...] on filedocumented in this encounter Care Teams Fruit Harvester Relationship Specialty Start Date End Date Truman Bess MD [address] [place], [place] [phone] PCP - General Internal Medicine 04/07/22 documented as of this encounter
--- OUTSIDE RECORDS SUMMARY | 2024-05-02 12:05 | XMS_ITS | Encounter Summary ---
Author Organization [facility] Address [address] [place] [address] Care Team Providers Care Switcher Name Role Phone Argelia Worthington MD Primary Care Provider [phone] Encounter Details Date Type Department Care Team (Late st Contact Info) Description 04/12/2024 Lab Requisition [facility] - Main Lab [address] [place] [address] Alvaro Baez MD [address] [place] [address] Cerebral infarction, unspecified (CMS/HCC) Social History Tobacco [...] LAB CHEMISTRY METHOD 04/12/2024 10:52 AM EST [facility] Potassium 4.3 3.5 - 5.5 mmol/L LAB CHEMISTRY METHOD 04/12/2024 10:52 AM EST [facility] Chloride 105 96 - 110 mmol/L LAB CHEMISTRY METHOD 04/12/2024 10:52 AM [facility] CO2 28 21 - 32 mmol/L LAB CHEMISTRY METHOD 04/12/2024 10:52 AM [facility] Anion Gap 6 3 - 11 LAB CHEMISTRY METHOD 04/12/2024 10:52 AM [facility] Glucose 91 70 - 100 mg/dL LAB CHEMISTRY METHOD 04/12/2024 10:52 AM [facility] BUN 36(H) 5 - 25 mg/dL LAB CHEMISTRY METHOD 04/12/2024 10:52 AM [facility] Creatinine 1.26 0.70 - 1.30 mg/dL LAB CHEMISTRY METHOD 04/12/2024 10:52 AM [facility] eGFR 56(L) >=60 mL/min/1. 73m2 LAB CHEMISTRY METHOD 04/12/2024 10:52 AM [facility] Comment:Calculation based on the??Chronic Kidney Disease Epidemiology Collaboration (CKD-EPI) equation refit??without adjustment for race. BUN/Creatinine Ratio 28.6 LAB CHEMISTRY METHOD 04/12/2024 10:52 AM [facility] Calcium 8.6 8.5 - 10.5 mg/dL LAB CHEMISTRY METHOD 04/12/2024 10:52 AM [facility] Blood Venous blood specimen / Unknown Venipuncture / Unknown 04/12/2024 6:41 AM EST 04/12/2024 9:49 AM EST Alvaro Baez MD LAB BLOOD ORDERABLES [facility] [address] [place] [address], * (ABNORMAL) Complete blood count (04/12/2024 6:41 AM EST) WBC 10.7 4.8 - 10.8 K/mcL LAB HEMETOLOGY METHOD 04/12/2024 10:33 AM [facility] RBC 3.50(L) 4.50 - 5.50 M/mcL LAB HEMETOLOGY METHOD 04/12/2024 10:33 AM [facility] Hemoglobin 11.1(L) 13.5 - 17.5 g/dL LAB HEMETOLOGY METHOD 04/12/2024 10:33 AM [facility] Hematocrit 37.6(L) 42.0 - 54.0 % LAB HEMETOLOGY METHOD 04/12/2024 10:33 AM [facility] MCV 109.0(H) 79.0 - 98.0 FL LAB HEMETOLOGY METHOD 04/12/2024 10:33 AM [facility] MCH 32.2(H) 27.0 - 32.0 pcg LAB HEMETOLOGY METHOD 04/12/2024 10:33 AM [facility] MCHC 29.5(L) 32.0 - 37.0 g/dL LAB HEMETOLOGY METHOD 04/12/2024 10:33 AM [facility] RDW 12.4 11.0 - 15.0 % LAB HEMETOLOGY METHOD 04/12/2024 10:33 AM [facility] Platelets 197 130 - 400 K/mcL LAB HEMETOLOGY METHOD 04/12/2024 10:33 AM [facility] MPV 9.5 7.0 - 11.0 FL LAB HEMETOLOGY METHOD 04/12/2024 10:33 AM [facility] NRBC 0.0 <1.0 % LAB HEMETOLOGY METHOD 04/12/2024 10:33 AM [facility] NRBC Absolute 0.00 <0.10 K/mcL LAB HEMETOLOGY METHOD 04/12/2024 10:33 AM [facility] Blood Venous blood specimen / Unknown Venipuncture / Unknown 04/12/2024 6:41 AM EST 04/12/2024 9:49 AM EST Alvaro Baez MD LAB BLOOD ORDERABLES [facility] [address] [place] [address], documented in this encounter Visit Diagnoses Diagnosis Cerebral infarction, unspecified (CMS/HCC) documented in this encounter Care Teams Switcher Relationship Specialty Start Date End Date Argelia Worthington MD [address] [place] [address] [place] PCP - General 12/29/11 documented as of this encounter
--- OUTSIDE RECORDS SUMMARY | 2024-05-02 12:05 | XMS_ITS | Encounter Summary ---
Author Organization [facility], Address [address] [place] [address] Phone Care Team Providers Care Lens Hardener Name Role Phone Truman Bess MD Primary Care Provide r Reason for Visit * Reason Comments Med Refill Encounter Details Date Type Department Care Team (Late st Contact Info) Description 03/14/2020 Refill [facility] [address] [place] [address] Rafael Randolph MD [address] [place] [address] [place] [address] Social History Tobacco Use Types Packs/Day Years [...] on filedocumented in this encounter Care Teams Lens Hardener Relationship Specialty Start Date End Date Truman Bess MD [address] [place] [address] [phone] PCP - General Internal Medicine 04/07/22 documented as of this encounter
--- OUTSIDE RECORDS SUMMARY | 2024-05-02 12:05 | XMS_ITS | Encounter Summary ---
Author Organization [facility] Address [address] [place] [address] Care Team Providers Care It Program Manager Name Role Phone Argelia Worthington MD Primary Care Provider [phone] Encounter Details Date Type Department Care Team (Late st Contact Info) Description 04/03/2024 Lab Requisition [facility] - Main Lab [address] [place] [address] Alvaro Baez MD [address] [place] [address] Chronic kidney disease, unspecified; Cerebral infarction, unspecified [...] LAB CHEMISTRY METHOD 04/03/2024 11:58 AM EST [facility] Potassium 4.4 3.5 - 5.5 mmol/L LAB CHEMISTRY METHOD 04/03/2024 11:58 AM [facility] Chloride 107 96 - 110 mmol/L LAB CHEMISTRY METHOD 04/03/2024 11:58 AM [facility] CO2 25 21 - 32 mmol/L LAB CHEMISTRY METHOD 04/03/2024 11:58 AM [facility] Anion Gap 6 3 - 11 LAB CHEMISTRY METHOD 04/03/2024 11:58 AM [facility] Glucose 89 70 - 100 mg/dL LAB CHEMISTRY METHOD 04/03/2024 11:58 AM [facility] BUN 30(H) 5 - 25 mg/dL LAB CHEMISTRY METHOD 04/03/2024 11:58 AM [facility] Creatinine 1.19 0.70 - 1.30 mg/dL LAB CHEMISTRY METHOD 04/03/2024 11:58 AM [facility] eGFR 60 >=60 mL/min/1. 73m2 LAB CHEMISTRY METHOD 04/03/2024 11:58 AM [facility] Comment:Calculation based on the??Chronic Kidney Disease Epidemiology Collaboration (CKD-EPI) equation refit??without adjustment for race. BUN/Creatinine Ratio 25.2 LAB CHEMISTRY METHOD 04/03/2024 11:58 AM [facility] Calcium 8.5 8.5 - 10.5 mg/dL LAB CHEMISTRY METHOD 04/03/2024 11:58 AM [facility] Blood Venous blood specimen / Unknown Venipuncture / Unknown 04/03/2024 8:12 AM EST 04/03/2024 10:36 AM EST Alvaro Baez MD LAB BLOOD ORDERABLES [facility] [address] [place] [address], * (ABNORMAL) Complete blood count (04/03/2024 8:12 AM EST) WBC 7.2 4.8 - 10.8 K/mcL LAB HEMETOLOGY METHOD 04/03/2024 11:23 AM [facility] RBC 3.20(L) 4.50 - 5.50 M/mcL LAB HEMETOLOGY METHOD 04/03/2024 11:23 AM [facility] Hemoglobin 10.4(L) 13.5 - 17.5 g/dL LAB HEMETOLOGY METHOD 04/03/2024 11:23 AM [facility] Hematocrit 32.3(L) 42.0 - 54.0 % LAB HEMETOLOGY METHOD 04/03/2024 11:23 AM [facility] MCV 101.6(H) 79.0 - 98.0 FL LAB HEMETOLOGY METHOD 04/03/2024 11:23 AM [facility] MCH 32.7(H) 27.0 - 32.0 pcg LAB HEMETOLOGY METHOD 04/03/2024 11:23 AM [facility] MCHC 32.2 32.0 - 37.0 g/dL LAB HEMETOLOGY METHOD 04/03/2024 11:23 AM [facility] RDW 12.3 11.0 - 15.0 % LAB HEMETOLOGY METHOD 04/03/2024 11:23 AM [facility] Platelets 197 130 - 400 K/[facility] LAB HEMETOLOGY METHOD 04/03/2024 11:23 AM [facility] MPV 9.4 7.0 - 11.0 FL LAB HEMETOLOGY METHOD 04/03/2024 11:23 AM [facility] NRBC 0.0 <1.0 % LAB HEMETOLOGY METHOD 04/03/2024 11:23 AM [facility] NRBC Absolute 0.00 <0.10 K/mcL LAB HEMETOLOGY METHOD 04/03/2024 11:23 AM [facility] Blood Venous blood specimen / Unknown Venipuncture / Unknown 04/03/2024 8:12 AM EST 04/03/2024 10:36 AM EST Alvaro Baez MD LAB BLOOD ORDERABLES [facility] [address] [place] [address], documented in this encounter Visit Diagnoses Diagnosis Chronic kidney disease, unspecified Cerebral infarction, unspecified (CMS/HCC) documented in this encounter Care Teams It Program Manager Relationship Specialty Start Date End Date Argelia Worthington MD [address] [place], [place] [address]RICHARD guaman PCP - General 12/29/11 documented as of this encounter
--- OUTSIDE RECORDS SUMMARY | 2024-05-02 12:05 | XMS_ITS | Clinical Summary ---
Author Organization [facility], Address [address] [place] [address] [place] [address] Phone Care Team Providers Care Cracking Unit Operator Name Role Phone Truman Bess MD Primary Care Provide r Allergies Active Allergy Reactions Criticality Noted Date Comments Codeine Other (see comments) 03/15/2019 [place] Other (see comments) 03/15/2019 Morphine Other (see [...] Only [facility] [place] [address] [place] [address] Sameer Puckett MD 04/13/2024 Documentation Only [facility] [address] [place] [address] Tariq Ta MD 04/03/2024 Refill [facility] [address] [place] [address] Christie Goldberg MA from Last 3 Months [...] age to complete this topic Insurance [facility] Care Teams Cracking Unit Operator Relationship Specialty Start Date End Date Truman Bess MD [address] [place] [id number] PCP - General Internal Medicine 04/07/22
--- OUTSIDE RECORDS SUMMARY | 2024-05-02 12:06 | XMS_ITS | Encounter Summary ---
Author Organization [facility] Address [address] [place] [address] Phone Care Team Providers Care Brand Marketing Intern Name Role Phone Truman Bess MD Primary Care Provide r Encounter Details Date Type Department Care Team (Late st Contact Info) Description 10/08/2022 Documentation Only [facility] [place], [address] [place] [address] Danyell Hurd [address] [place] [phone] Social History Tobacco Use Types Packs/Day Years [...] on filedocumented in this encounter Care Teams Brand Marketing Intern Relationship Specialty Start Date End Date Truman Bess MD [address] [place] [id number] PCP - General Internal Medicine 04/07/22 documented as of this encounter
--- OUTSIDE RECORDS SUMMARY | 2024-05-02 12:06 | XMS_ITS | Encounter Summary ---
Author Organization [facility] [place], Address [address] [place] [address] Phone Care Team Providers Care Metal Roofing Mechanic Name Role Phone Truman Bess MD Primary Care Provide r Encounter Details Date Type Department Care Team (Late st Contact Info) Description 04/13/2024 Documentation Only [facility] [place], [address] [facility] [place] [address] Sameer Puckett MD [address] [facility] [place] [phone] Social History Tobacco Use Types Packs/Day Years [...] on filedocumented in this encounter Care Teams Metal Roofing Mechanic Relationship Specialty Start Date End Date Truman Bess MD [address] [place] [phone] PCP - General Internal Medicine 04/07/22 documented as of this encounter
--- OUTSIDE RECORDS SUMMARY | 2024-05-02 12:06 | XMS_ITS | Encounter Summary ---
Author Organization [facility] Address [address] [place] [address] Phone Care Team Providers Care Research Programmer Name Role Phone Truman Bess MD Primary Care Provide r Encounter Details Date Type Department Care Team (Late st Contact Info) Description 11/13/2021 Documentation Only [facility] [place], [address] [place] [address] Danyell Hurd [address] [place] [phone] Social History Tobacco Use Types Packs/Day Years [...] on filedocumented in this encounter Care Teams Research Programmer Relationship Specialty Start Date End Date Truman Bess MD [address] [place] [phone] PCP - General Internal Medicine 04/07/22 documented as of this encounter
--- OUTSIDE RECORDS SUMMARY | 2024-05-02 12:06 | XMS_ITS | Encounter Summary ---
Author Organization [facility], Address [address] [place] [address] Phone Care Team Providers Care Able Bodied Tankerman Name Role Phone Truman Bess MD Primary Care Provide r Encounter Details Date Type Department Care Team (Late st Contact Info) Description 05/05/2023 Documentation Only [facility], [address] [place] [address] Christie Goldberg [place] [address] [place] [phone] Social History Tobacco Use Types Packs/Day Years [...] on filedocumented in this encounter Care Teams Able Bodied Tankerman Relationship Specialty Start Date End Date Truman Bess MD [address] [place] [phone] PCP - General Internal Medicine 04/07/22 documented as of this encounter
--- OUTSIDE RECORDS SUMMARY | 2024-05-02 12:06 | XMS_ITS | Encounter Summary ---
Author Organization [facility], Address [address] [place] [address] Phone Care Team Providers Care Top Inventory Control Executive Name Role Phone Truman Bess MD Primary Care Provide r Encounter Details Date Type Department Care Team (Late st Contact Info) Description 01/09/2022 Documentation Only [facility], [address] [place] [address] Danyell Hurd [address] [place] [phone] Social History Tobacco Use Types Packs/Day Years [...] on filedocumented in this encounter Care Teams Top Inventory Control Executive Relationship Specialty Start Date End Date Truman Bess MD [address] [place] [id number] PCP - General Internal Medicine 04/07/22 documented as of this encounter
--- OUTSIDE RECORDS SUMMARY | 2024-05-02 12:06 | XMS_ITS | Encounter Summary ---
Author Organization [facility], Address [address] [place] [address] Phone Care Team Providers Care Terrazzo Finisher Helper Name Role Phone Truman Bess MD Primary Care Provide r Encounter Details Date Type Department Care Team (Late st Contact Info) Description 12/24/2023 Documentation Only [facility], [address] [place] [address] Sameer Puckett MD [address] [facility] [place] [phone] Social History Tobacco Use Types Packs/Day Years [...] on filedocumented in this encounter Care Teams Terrazzo Finisher Helper Relationship Specialty Start Date End Date Truman Bess MD [address] [place] [address] [phone] PCP - General Internal Medicine 04/07/22 documented as of this encounter
--- OUTSIDE RECORDS SUMMARY | 2024-05-02 12:06 | XMS_ITS | Encounter Summary ---
Author Organization [facility], Address [address] [address] Phone Care Team Providers Care Railroad Car Repairman Name Role Phone Truman Bess MD Primary Care Provide r Encounter Details Date Type Department Care Team (Late st Contact Info) Description 04/13/2024 Documentation Only [facility], [address] [place] [address] Tariq Ta MD [address] [place] [phone] Social History Tobacco Use Types Packs/Day Years [...] on filedocumented in this encounter Care Teams Railroad Car Repairman Relationship Specialty Start Date End Date Truman Bess MD [address] [place] [address] [phone] PCP - General Internal Medicine 04/07/22 documented as of this encounter
--- OUTSIDE RECORDS SUMMARY | 2024-05-02 12:06 | XMS_ITS | Encounter Summary ---
Author Organization [facility] Address [address] [place] [address] Phone Care Team Providers Care Linen Tech Name Role Phone Truman Bess MD Primary Care Provide r Reason for Visit * Reason Onset Date Comments Med Refill 04/03/2024 Encounter Details Date Type Department Care Team (Late st Contact Info) Description 04/03/2024 Refill [facility], [address] [place] [address] [place] [address] [place] [phone] Social History Tobacco Use Types Packs/Day [...] on filedocumented in this encounter Care Teams Linen Tech Relationship Specialty Start Date End Date Truman Bess MD [address] [place] [address] PCP - General Internal Medicine 04/07/22 documented as of this encounter
--- OUTSIDE RECORDS SUMMARY | 2024-05-02 12:06 | XMS_ITS | Encounter Summary ---
Author Organization [facility], Address [address] [place] [address] Phone Care Team Providers Care Jewel Bearing Facer Name Role Phone Truman Bess MD Primary Care Provide r Encounter Details Date Type Department Care Team (Late st Contact Info) Description 08/30/2023 Documentation Only [facility], [address] [place] [address] Sameer Puckett MD [address] [facility] [place] [phone] Social History Tobacco Use Types Packs/Day Years [...] on filedocumented in this encounter Care Teams Jewel Bearing Facer Relationship Specialty Start Date End Date Truman Bess MD [address] [place] [address] [phone] PCP - General Internal Medicine 04/07/22 documented as of this encounter
--- OUTSIDE RECORDS SUMMARY | 2024-05-02 12:06 | XMS_ITS | Clinical Summary ---
Author Organization [address] Address [address] [place] [address] Phone Care Team Providers Care Indigo Vat Tender Cloth Name Role Phone Argelia Worthington MD Primary Care Provider [phone] Encounters Date Type Department Care Team Description 04/12/2024 Lab Requisition [facility] [address] [place] [phone] Alvaro Baez MD Cerebral infarction, unspecified (CMS/HCC) 04/03/2024 Lab Requisition [facility] [address] [place] [phone] Alvaro Baez MD Chronic kidney disease, unspecified; Cerebral infarction, unspecified (CMS/HCC) 02/10/2024 Lab Requisition [facility] [address] [place] [phone] Alvaro Baez MD Cerebral infarction, unspecified (CMS/HCC) from Last 3 Months Surgical History Surgery Date Site/Laterality Comments CORONARY ARTERY BYPASS GRAFT PROCEDURE: HISTORICAL CABG TONSILLECTOMY PROCEDURE: HISTORICAL TONSILLECTOMY BACK SURGERY PROCEDURE: HISTORICAL BACK SURGERY CATARACT EXTRACTION PROCEDURE: HISTORICAL CATARACT REMOVAL OTHER SURGICAL HISTORY PROCEDURE: [facility] TOTAL DISC ARTHRP ANT SECOND INTERSPACE LUMBAR [...] K/mcL LAB HEMETOLOGY METHOD 04/12/2024 10:33 AM [facility] RBC 3.50(L) 4.50 - 5.50 M/mcL LAB HEMETOLOGY METHOD 04/12/2024 10:33 AM [facility] Hemoglobin 11.1(L) 13.5 - 17.5 g/dL LAB HEMETOLOGY METHOD 04/12/2024 10:33 AM [facility] Hematocrit 37.6(L) 42.0 - 54.0 % LAB HEMETOLOGY METHOD 04/12/2024 10:33 AM [facility] MCV 109.0(H) 79.0 - 98.0 FL LAB HEMETOLOGY METHOD 04/12/2024 10:33 AM [facility] MCH 32.2(H) 27.0 - 32.0 pcg LAB HEMETOLOGY METHOD 04/12/2024 10:33 AM [facility] MCHC 29.5(L) 32.0 - 37.0 g/dL LAB HEMETOLOGY METHOD 04/12/2024 10:33 AM [facility] RDW 12.4 11.0 - 15.0 % LAB HEMETOLOGY METHOD 04/12/2024 10:33 AM [facility] Platelets 197 130 - 400 K/mcL LAB HEMETOLOGY METHOD 04/12/2024 10:33 AM [facility] MPV 9.5 7.0 - 11.0 FL LAB HEMETOLOGY METHOD 04/12/2024 10:33 AM [facility] NRBC 0.0 <1.0 % LAB HEMETOLOGY METHOD 04/12/2024 10:33 AM [facility] NRBC Absolute 0.00 <0.10 K/mcL LAB HEMETOLOGY METHOD 04/12/2024 10:33 AM [facility] Blood Venous blood specimen / Unknown Venipuncture / Unknown 04/12/2024 6:41 AM EST 04/12/2024 9:49 AM EST Alvaro Baez MD LAB BLOOD ORDERABLES [facility] [address] [place] [address], * (ABNORMAL) Basic metabolic panel (04/12/2024 6:41 AM EST) Only the most recent of3 resultswithin the time period is included. Sodium 139 133 - 145 mmol/L LAB CHEMISTRY METHOD 04/12/2024 10:52 AM [facility] Potassium 4.3 3.5 - 5.5 mmol/L LAB CHEMISTRY METHOD 04/12/2024 10:52 AM [facility] Chloride 105 96 - 110 mmol/L LAB CHEMISTRY METHOD 04/12/2024 10:52 AM [facility] CO2 28 21 - 32 mmol/L LAB CHEMISTRY METHOD 04/12/2024 10:52 AM [facility] Anion Gap 6 3 - 11 LAB CHEMISTRY METHOD 04/12/2024 10:52 AM [facility] Glucose 91 70 - 100 mg/dL LAB CHEMISTRY METHOD 04/12/2024 10:52 AM [facility] BUN 36(H) 5 - 25 mg/dL LAB CHEMISTRY METHOD 04/12/2024 10:52 AM [facility] Creatinine 1.26 0.70 - 1.30 mg/dL LAB CHEMISTRY METHOD 04/12/2024 10:52 AM [facility] eGFR 56(L) >=60 mL/min/1. 73m2 LAB CHEMISTRY METHOD 04/12/2024 10:[address] [facility] Comment:Calculation based on the??Chronic Kidney Disease Epidemiology Collaboration (CKD-EPI) equation refit??without adjustment for race. BUN/Creatinine Ratio 28.6 LAB CHEMISTRY METHOD 04/12/2024 10:[address] [facility] Calcium 8.6 8.5 - 10.5 mg/dL LAB CHEMISTRY METHOD 04/12/2024 10:[address] [facility] Blood Venous blood specimen / Unknown Venipuncture / Unknown 04/12/2024 6:41 AM EST 04/12/2024 9:49 AM EST Alvaro Baez MD LAB BLOOD ORDERABLES [facility] [address] [place] [address], from Last 3 Months Care Teams Indigo Vat Tender Cloth Relationship Specialty Start Date End Date Argelia Worthington MD [address] [place] [address] PCP - General 12/29/11
--- OUTSIDE RECORDS SUMMARY | 2024-05-02 12:06 | XMS_ITS | Encounter Summary ---
Author Organization [facility] Address [address] [place] [address] Phone Care Team Providers Care Automation Manager Name Role Phone Truman Bess MD Primary Care Provide r Encounter Details Date Type Department Care Team (Late st Contact Info) Description 04/10/2022 Documentation Only [facility], [address] [place] [address] Danyell Hurd [address] [place] [phone] Social History Tobacco Use Types Packs/Day Years [...] on filedocumented in this encounter Care Teams Automation Manager Relationship Specialty Start Date End Date Truman Bess MD [address] [place] [phone] PCP - General Internal Medicine 04/07/22 documented as of this encounter
--- OUTSIDE RECORDS SUMMARY | 2024-05-02 12:06 | XMS_ITS | Encounter Summary ---
Author Organization [facility] Address [address] [place] [address] Phone Care Team Providers Care Plastic Extrusion Operator Name Role Phone Truman Bess MD Primary Care Provide r Encounter Details Date Type Department Care Team (Late st Contact Info) Description 12/25/2022 Documentation Only [facility], [address] [place] [address] Danyell Hurd [address] [place] [phone] Social History Tobacco Use Types Packs/Day Years [...] on filedocumented in this encounter Care Teams Plastic Extrusion Operator Relationship Specialty Start Date End Date Truman Bess MD [address] [place] [phone] PCP - General Internal Medicine 04/07/22 documented as of this encounter
--- OUTSIDE RECORDS SUMMARY | 2024-05-02 12:06 | XMS_ITS | Encounter Summary ---
Author Organization [facility] Address [address] [place] [address] Phone Care Team Providers Care Beverage Sales Consultant Name Role Phone Truman Bess MD Primary Care Provide r Encounter Details Date Type Department Care Team (Late st Contact Info) Description 04/07/2022 Documentation Only [facility], [address] [place] [address] Danyell Hurd [address] [place] [phone] Social History Tobacco Use Types Packs/Day Years [...] on filedocumented in this encounter Care Teams Beverage Sales Consultant Relationship Specialty Start Date End Date Truman Bess MD [address] [place] [phone] PCP - General Internal Medicine 04/07/22 documented as of this encounter
--- OUTSIDE RECORDS SUMMARY | 2024-05-02 12:06 | XMS_ITS | Encounter Summary ---
Author Organization [facility], Address [address] [place] [address] Phone Care Team Providers Care Setter Out Name Role Phone Truman Bess MD Primary Care Provide r Encounter Details Date Type Department Care Team (Late st Contact Info) Description 09/19/2021 Documentation Only [facility], [address] [place] [address] Danyell Hurd [address] [place] [phone] Social History Tobacco Use Types Packs/Day Years [...] on filedocumented in this encounter Care Teams Setter Out Relationship Specialty Start Date End Date Truman Bess MD [address] [place] [phone] PCP - General Internal Medicine 04/07/22 documented as of this encounter
== END 2024-05-02 12:28 | disposition home or self-care (01) ==
PROVIDERS: PCP Internal Medicine; Visit Provider Physician Assistant
DX: S82.201D Unspecified fracture of shaft of right tibia, subsequent encounter for closed fracture with routine healing (principal); S82.401D Unspecified fracture of shaft of right fibula, subsequent encounter for closed fracture with routine healing
CPT/HCPCS: 99213

== ENCOUNTER → 2024-05-02 11:22 | Outpatient (BNV) | payer MEDICARE, OTHER, SELFPAY | PROVIDERS: Visit Provider Radiology Diagnostic Radiology | DX: M25.571 Pain in right ankle and joints of right foot (principal) | CPT/HCPCS: 73610 ==